=== PATIENT | female | born 1960 | race African-American/Black ===

== ENCOUNTER 2017-04-26 10:28 | Outpatient (CLI) | payer OTHER | END 2017-04-26 11:30 | disposition home or self-care (01) | LOC: RAD 10:28 | DX: M17.0 Bilateral primary osteoarthritis of knee (principal) ==

== ENCOUNTER 2019-09-10 11:48 | Outpatient (CLI) | payer OTHER | END 2019-09-10 21:12 | disposition home or self-care (01) | LOC: RAD 11:48 | DX: M17.0 Bilateral primary osteoarthritis of knee (principal) ==